=== PATIENT | male | born 1980 | race Caucasian/White ===

== ENCOUNTER 2017-10-02 07:39 | Emergency (ER) | payer OTHER ==
[~2017-10-02] VITALS: Ht 167.6 cm; Wt 65.8 kg
[~2017-10-02 07:39] MED LIST: CEPH500 PO; CYCL10 PO; HYDACE5 PO; IBUP600; NAPR550 PO; OXYACE5T PO
== END 2017-10-02 09:23 | disposition home or self-care (01) ==
LOC: ER 07:39
DX: R20.2 Paresthesia of skin (principal)
CPT/HCPCS: 70450; 99284